=== PATIENT | male | born 1945 ===

== ENCOUNTER 2019-06-26 18:03 | Inpatient (IN) ==
[2019-06-26] MEDS ORDERED: SODIUM CHLORIDE 0.9% 500 ML IV STA (18:34)
[2019-06-26] MEDS ORDERED: ONDANSETRON 4 MG/2 ML VIAL IV STA (18:34)
[2019-06-26] MEDS ORDERED: methylPREDNISolone SOD SUC 125 MG/2 ML VIAL IV STA (18:34)
[2019-06-26] MEDS ORDERED: PIPERACILLIN/TAZOBACTAM 3,375 MG in SODIUM CHLORIDE 0.9% 100 ML IV STA (18:42)
[2019-06-26] MEDS ORDERED: PHENYLEPHRINE DRIP 40 MG/250 ML PREMIX IV PRN (18:48)
[2019-06-26] MEDS ORDERED: ALBUTEROL NEB SOLN 5 MG/ML 20 ML/BOTTLE RESP TX SCH (19:00)
[2019-06-26 19:12] LABS: Basophils % 0.3 % (0.0-0.8); Hematocrit 36.4 VOL% (42.0-52.0); Hemoglobin 11.2 GM/DL (14.0-18.0); Immature Granulocytes % 0.3 %; Immature Granulocytes Absolute 0.01 #; Lymphocytes # 0.4 10*3/uL (1.4-4.0); Mean Corpuscular HGB Conc 30.8 GM/DL (32-36); Mean Platelet Volume 10.1 FL (9.6-12.0); Neutrophils % 79.4 % (38.7-73.9); Platelet Count 107 T/CUMM (130-400); Red Blood Count 3.57 MC/CUMM (3.8-5.5); White Blood Count 3.2 T/CUMM (4-12)
[2019-06-26 19:18] LABS: ABG Base Excess -10.8 MMOL/L (-2.5-2.5); ABG HCO3 15.9 MMOL/L (20-26); ABG Oxygen Saturation 94.1 % (95-100); ABG PCO2 22.5 MM HG (35-48); ABG PH 7.371 (7.35-7.45); ABG PO2 72.4 MM HG (80-95); ABG TCO2 11.7 MMOL/L (23-27)
[2019-06-26 19:30] LABS: INR 1.1; PT Patient Result 11.8 SECS
[2019-06-26 19:33] LABS: Albumin 2.9 G/DL (3.4-5.0); Bilirubin,Total 0.7 MG/DL (0.2-1.0); Calcium 8.5 MG/DL (8.5-10.1); Osmolality,Calculated 286.3 MOS/KG (273-304); Total Protein 5.8 G/DL (6.4-8.3)
[2019-06-26 19:36] LABS: Apearance,Urine Slightly Hazy (Clear); Bacteria,Urine Occasional /HPF (Few); Bilirubin,Urine Negative (Negative); Blood, Urine Small mg/dL (Negative); Glucose,Urine (UA) Negative (Negative); Hyaline Casts,Urine 5 /LPF (0-3); Ketones,Urine 5 mg/dL (Negative); Mucus,Urine Occasional /LPF (Occasional); Nitrite,Urine Negative (Negative); Protein,Urine 30 MG/DL; RBC,Urine 1 /HPF (0-4); Squamous Epithelial Cell,Urine Occasional /HPF (0-10); Urine Color Yellow (Yellow); Urine Specific Gravity 1.015 (1.001-1.035); Urine Urobilinogen < 2.0 EU/DL (0.2-1.0); WBC,Urine 1 /HPF (0-6)
[2019-06-26] MEDS ORDERED: MAGNESIUM SULF RIDER 2 GM in PREMIX 1 EACH IV STA (19:38)
[2019-06-26] MEDS ORDERED: SODIUM CHLORIDE 0.9% 1,900 ML IV ONE ×2 (19:39→21:32)
[2019-06-26 19:43] LABS: Band Neutrophils 36 % (0-10); Lymphocytes 19 % (20-55); Metamyelocytes 5 %; Myelocytes 8 %; Segmented Neutrophils 22 % (50-85); Total Cells Counted 100
[2019-06-26 19:44] LABS: Barbiturates Screen,Urine Negative (Negative); Benzodiazepines Screen,Urine Negative (Negative); Cannabinoid Screen,Urine Negative (Negative); Opiate Screen,Urine Negative (Negative); Phencyclidine Screen,Urine Negative (Negative)
[2019-06-26 19:44] LABS: Platelet Estimate Adequate
[2019-06-26] MEDS ORDERED: NOREPINEPHRINE 4 MG/4 ML VIAL IV ONE (19:58)
[2019-06-26] MEDS ORDERED: NOREPINEPHRINE 8 MG in SODIUM CHLORIDE 0.9% 242 ML IV PRN (20:01)
[2019-06-26] MEDS ORDERED: ETOMIDATE 20 MG/10 ML VIAL IV STA (20:03)
[2019-06-26] MEDS ORDERED: VECURONIUM 10 MG VIAL IV STA (20:04)
[2019-06-26] MEDS ORDERED: EPINEPHrine 1 MG/10 ML SYRINGE IV ONE (20:32)
[2019-06-26] MEDS ORDERED: EPINEPHrine 1 MG/ML VIAL ONE ×2 (20:35→22:21)
[2019-06-26] MEDS ORDERED: MAGNESIUM SULF RIDER 4 GM in PREMIX 1 EACH IV PRN (21:32)
[2019-06-26] MEDS ORDERED: MAGNESIUM SULF RIDER 2 GM in PREMIX 1 EACH IV PRN (21:32)
[2019-06-26] MEDS ORDERED: HEPARIN 5,000 UNIT/1 ML VIAL SUBCUT SCH (22:00)
[2019-06-26] MEDS ORDERED: HEPARIN DRIP 25,000 UNITS/500 ML PREMIX IV SCH (22:00)
[2019-06-26 22:16] LABS: ABG Base Excess -13.8 MMOL/L (-2.5-2.5); ABG HCO3 13.7 MMOL/L (20-26); ABG Oxygen Saturation 94.4 % (95-100); ABG PCO2 45.6 MM HG (35-48); ABG PO2 95.9 MM HG (80-95); ABG TCO2 14.3 MMOL/L (23-27); Allen Test Positive; Pt O2 Delivery Device Ventilator
[2019-06-26 22:32] VITALS: BP 108/72
[2019-06-26] MEDS ORDERED: SODIUM BICARBONATE 50 MEQ/50 ML VIAL IV ONE ×2 (22:36→22:37)
[2019-06-26] MEDS ORDERED: VANCOMYCIN INJ 1,000 MG in SODIUM CHLORIDE 0.9% 250 ML IV SCH (23:00)
[2019-06-26] MEDS ORDERED: FUROSEMIDE 40 MG/4 ML VIAL IV ONE (23:47)
[2019-06-27] MEDS ORDERED: PHENYLEPHRINE INJ 160 MG in SODIUM CHLORIDE 0.9% 234 ML IV PRN
[2019-06-27] MEDS ORDERED: NOREPINEPHRINE 16 MG in SODIUM CHLORIDE 0.9% 234 ML IV PRN
[2019-06-27] MEDS ORDERED: SODIUM BICARBONATE 50 MEQ/50 ML SYRINGE IV ONE (01:58)
[2019-06-27] MEDS ORDERED: EPINEPHrine 1 MG/10 ML SYRINGE ONE (01:58)
[2019-06-27] MEDS ORDERED: ATROPINE 1 MG/10 ML SYRINGE ONE (01:58)
[2019-06-27] MEDS ORDERED: EPINEPHrine 1 MG/ML VIAL ONE (03:17)
[2019-06-27] MEDS ORDERED: PIPERACILLIN/TAZOBACTAM 3,375 MG in SODIUM CHLORIDE 0.9% 100 ML IV SCH (04:00)
[2019-06-27] MEDS ORDERED: PANTOPRAZOLE 40 MG VIAL IV SCH (09:00)
== END 2019-06-27 03:25 | disposition expired | DRG 871 ==
LOC: N.ED 18:03 → N.EDINP 20:39 → N.ICU 20:55
PROVIDERS: ADMIT Internal Medicine; ATTEND Internal Medicine